=== PATIENT | male | born 1940 | race Caucasian/White ===

== ENCOUNTER → 2017-07-15 | Outpatient (REF) | payer MEDICARE, OTHER ==
[2017-07-15 21:44] LABS: ATYPICAL LYMPH 6 % (0-5); BANDS 3 % (< 11); LYMPHOCYTES 2 % (16-52); MONOCYTES 6 % (0-8); MYELOCYTES 1 % (0-0); NEUTROPHILS 82 % (35-75)
[2017-07-15 21:48] LABS: PLATELET ESTIMATE NORMAL (NORMAL)
== END ==
LOC: M LAB REF 17:22
DX: J20.9 Acute bronchitis, unspecified (principal); R05 Cough
CPT/HCPCS: 85007

== ENCOUNTER → 2019-07-20 | Outpatient (REF) | payer MEDICARE, OTHER | LOC: M LAB REF 13:20 | PROVIDERS: ATTEND Nurse Practitioner Adult Health | DX: Z01.818 Encounter for other preprocedural examination (principal); N40.1 Benign prostatic hyperplasia with lower urinary tract symptoms ==

== ENCOUNTER → 2020-03-09 | Outpatient (REF) | payer MEDICARE, OTHER ==
[2020-03-09 17:43] LABS: VITAMIN B12 LEVEL 1005 PG/ML (247-911)
== END ==
LOC: M LAB REF 16:12
PROVIDERS: ATTEND Nurse Practitioner Adult Health
DX: D51.9 Vitamin B12 deficiency anemia, unspecified (principal); Z72.51 High risk heterosexual behavior

== ENCOUNTER → 2020-04-13 | Outpatient (CLI) | payer MEDICARE, OTHER | LOC: M LABSMTC 11:51 | PROVIDERS: ATTEND Family Medicine | DX: Z11.59 Encounter for screening for other viral diseases (principal) | CPT/HCPCS: C9803; U0003 ==

== ENCOUNTER → 2020-04-22 | Outpatient (CLI) | payer MEDICARE, OTHER ==
--- NOTE | 2020-04-24 06:47 | REP ---
INDICATION: ACUTE BRONCHITIS. COMPARISON: November 13, 2016. TECHNIQUE: Three views... FINDINGS: The lungs are well inflated and free of infiltrate. The pleural angles are sharp. The heart size is normal. Pulmonary vasculature is not increased. No significant bony abnormality is seen. Vascular calcification and tortuosity are seen in the thoracic aorta. Minimal linear fibrosis is noted in the right base. IMPRESSION: Minimal linear fibrosis right base. Otherwise negative chest x-ray.. <Electronically signed by Braydon Christian > 04/22/20 [id number]
== END ==
LOC: M WUC 13:27
PROVIDERS: ATTEND Nurse Practitioner Family
DX: J20.9 Acute bronchitis, unspecified (principal); J84.10 Pulmonary fibrosis, unspecified

== ENCOUNTER → 2020-06-01 | Outpatient (CLI) | payer MEDICARE, OTHER ==
--- NOTE | 2020-06-01 13:27 | REPPI ---
INDICATION: PRE OP RIGHT KNEE ARTHROPLASTY. COMPARISON: Comparison chest x-ray April 22, 2020. TECHNIQUE: Two views.. FINDINGS: The lungs are well inflated and free of infiltrate. The pleural angles are sharp. The heart size is normal. Pulmonary vasculature is not increased. No significant bony abnormality is seen. There is mild calcification and tortuosity in the thoracic aorta. There is a granulomatous calcification projecting at the left apex over the medial clavicle unchanged. IMPRESSION: No active disease.. <Electronically signed by Braydon Christian > 06/01/20 [id number]
[2020-06-01 13:38] LABS: HEMATOCRIT 49.2 % (42.0-52.0); HEMOGLOBIN 15.6 g/dl (13.5-17.5); MEAN CORPUSCULAR HEMOGLOBIN 32.1 pg (27.0-33.0); MEAN CORPUSCULAR HGB CONC 31.7 g/dl (32.0-36.5); MEAN CORPUSCULAR VOLUME 101.2 fl (80.0-96.0); PLATELET COUNT, AUTOMATED 281 10^3/uL (150-450); RED BLOOD COUNT 4.86 10^6/uL (4.30-6.10); WHITE BLOOD COUNT 7.4 10^3/uL (4.0-10.0)
[2020-06-01 13:49] LABS: INR 0.95; PROTHROMBIN TIME 12.9 SECONDS (12.5-14.3)
[2020-06-01 14:07] LABS: ALBUMIN 3.8 GM/DL (3.2-5.2); ALT/SGPT 29 U/L (12-78); BILIRUBIN,TOTAL 0.4 MG/DL (0.2-1.0); BLOOD UREA NITROGEN 17 MG/DL (7-18); CARBON DIOXIDE LEVEL 29 MEQ/L (21-32); CHLORIDE LEVEL 105 MEQ/L (98-107); CREATININE FOR GFR 0.89 MG/DL (0.70-1.30); GLOMERULAR FILTRATION RATE > 60.0 (>35); GLUCOSE, FASTING 86 MG/DL (70-100); POTASSIUM SERUM 4.3 MEQ/L (3.5-5.1); SODIUM LEVEL 138 MEQ/L (136-145); TOTAL PROTEIN 6.7 GM/DL (6.4-8.2)
[2020-06-01 14:20] LABS: ERYTHROCYTE SEDIMENTATION RATE 2 mm/hr (0-20)
== END ==
LOC: M PLAIMG 10:20
PROVIDERS: ATTEND Physician Assistant
DX: Z01.818 Encounter for other preprocedural examination (principal); M17.11 Unilateral primary osteoarthritis, right knee; I10 Essential (primary) hypertension; E78.00 Pure hypercholesterolemia, unspecified; K21.9 Gastro-esophageal reflux disease without esophagitis

== ENCOUNTER → 2020-06-09 | Outpatient (CLI) | payer MEDICARE, OTHER ==
[~2020-06-09] MED LIST: AMLO1TAB25 PO; ASPI81TA26 PO; ATOR1TAB21 PO; CVS1CAP2 PO; CYAN500T14 PO; D31000TA2 PO; ECOT81TA5 PO; HYDR12CA PO; LISI-538 PO; MONT5TAB2 PO; MYRB50TA PO; PERC5TAB12 PO; VITA-243 PO; [UNRECOGNIZED DRUG - OTHER] PO
== END ==
LOC: M LABSMTC 10:33
PROVIDERS: ATTEND Anesthesiology
DX: Z11.59 Encounter for screening for other viral diseases (principal)

== ENCOUNTER 2020-06-14 09:01 | Inpatient (IN) | payer MEDICARE, OTHER ==
[~2020-06-14] VITALS: Ht 172.7 cm; Wt 75.0 kg
[~2020-06-14 09:01] MED LIST changes: +ACETAMINOPHEN 500 MG TAB PO ONE; -ECOT81TA5 PO; +LR 1,000 ML IV ONE; +MIDAZOLAM INJ 2MG/2ML VIAL (J2250 PER 1MG) IV PRN; -PERC5TAB12 PO; +ceFAZolin SOD 2 GM in IV 1 EA IV ONE; +fentaNYL 100 MCG/2 ML INJECTION (J3010) IV PRN
--- NOTE | 2020-06-14 09:10 | HPE ---
HISTORY AND PHYSICAL DATE OF ADMISSION: 06/14/2020 ATTENDING: Dr. Thomas Maynard CHIEF COMPLAINT: Right knee pain. HISTORY OF PRESENT ILLNESS: Mr. Francisco is a pleasant 80-year-old male with progressively worsening right knee pain and stiffness. He has failed to improve with conservative treatment. He has elected for surgery for his continued symptoms. He has pain with weightbearing activities and his activities of daily living. X-rays of his knee are notable for advanced osteoarthritis of the right knee joint. He is consented for a right total knee arthroplasty by Dr. Thomas Maynard. Medical optimization was performed by Dr. Granger's office. ALLERGIES: No known allergies. CURRENT MEDICATIONS: 1. Lisinopril 20 mg daily. 2. B-12 3000 mcg day. 3. Myrbetriq 50 mg once a day. 4. Atorvastatin 20 mg. 5. Montelukast 10 mg. 6. Nori baby aspirin. 7. Famotidine 20 mg at bedtime. PAST MEDICAL HISTORY: 1. Hypertension. 2. High cholesterol. 3. Acid reflux. PAST SURGICAL HISTORY: Hernia repair. SOCIAL HISTORY: This gentleman is retired, does not smoke, and drinks daily. FAMILY HISTORY: Noncontributory. REVIEW OF SYSTEMS: This patient denies chest pain, heart palpitations, cough, wheezing, difficulty breathing, or shortness of breath. He denies abdominal pain, nausea, vomiting, diarrhea, or constipation. He denies recent upper respiratory infection or urinary tract infection symptoms. He does complain of persistent pain in the right knee. PHYSICAL EXAMINATION: GENERAL: He is a well-nourished, well-developed, in no acute distress, alert male. He ambulates with a moderate limp favoring his right lower extremity. He is using a single leg cane. VITAL SIGNS: He is 5 feet 7.5 inches tall and weighs 165 pounds, temperature 96.6, blood pressure 122/84, pulse 78, and respirations 16. NECK: Supple without adenopathy or jugular venous distention. LUNGS: Clear to auscultation without rales or wheezes throughout. HEART: Regular rate and rhythm. ABDOMEN: Bowel sounds are present. EXTREMITIES: Examination of the knee revealed intact skin. He had decreased range of motion due to pain and stiffness. The limb was neurovascularly intact. LABORATORY DATA: Chest x-ray showed no acute cardiopulmonary disease processes. We are waiting on the EKG from Dr. Granger's office. Pro time 12.9, INR 0.95, glucose 86, BUN 17, creatinine 0.89, sodium 138, potassium 4.3. CBC showed MCV of 101.2 and a mean corpuscular hemoglobin concentration of 31.7, otherwise within normal limits with a sedimentation rate of 2. IMPRESSION: Symptomatic osteoarthritis of the right knee joint. PLAN: Consented for a right total knee arthroplasty by Dr. Thomas Maynard.
[2020-06-14] MEDS ORDERED: fentaNYL 100 MCG/2 ML INJECTION (J3010) As Ordered ONE ×2 (10:10→11:04)
[2020-06-14] MEDS ORDERED: propofoL 200 MG/20 ML VIAL As Ordered ONE (10:10)
[2020-06-14] MEDS ORDERED: TRANEXAMIC ACID 100 MG/ML 10ML VIAL As Ordered ONE (10:18)
[2020-06-14] MEDS ORDERED: BUPIVACAINE HCL 0.25% 10ML VIAL As Ordered ONE (10:18)
[2020-06-14] MEDS ORDERED: BUPIVACAINE LIPOSOME/PF 1.3% 20ML VIAL (13.3MG/ML)(EXPAREL)(C9290 PER1MG) As Ordered ONE (10:19)
[2020-06-14] MEDS ORDERED: EPINEPHrine INJ 1 MG/ML 1ML AMP As Ordered ONE ×2 (10:19→11:04)
[2020-06-14] MEDS ORDERED: ceFAZolin 1GM VIAL (J0690 PER 500MG) As Ordered ONE (10:19)
[2020-06-14] MEDS ORDERED: dexameTHASONE 10MG/1ML VIAL PRES.FREE (J1100 PER 1MG) As Ordered ONE (11:02)
[2020-06-14] MEDS ORDERED: LIDOCAINE 1% MDV 20ML VIAL As Ordered ONE (11:02)
[2020-06-14] MEDS ORDERED: ROPIvacaine 0.5% 30ML INJECTION (J2795 PER 1MG) As Ordered ONE ×2 (11:02→11:04)
[2020-06-14] MEDS ORDERED: MIDAZOLAM INJ 2MG/2ML VIAL (J2250 PER 1MG) As Ordered ONE (11:04)
[2020-06-14] MEDS ORDERED: EPINEPHrine INJ 1 MG/ML 1ML AMP XX ONE (11:30)
[2020-06-14] MEDS ORDERED: ROPIvacaine 0.5% 30ML INJECTION (J2795 PER 1MG) XX ONE (11:30)
[2020-06-14] MEDS ORDERED: dexameTHASONE 10MG/1ML VIAL PRES.FREE (J1100 PER 1MG) XX ONE (11:30)
[2020-06-14] MEDS ORDERED: MIDAZOLAM INJ 2MG/2ML VIAL (J2250 PER 1MG) IV PRN (12:00)
[2020-06-14] MEDS ORDERED: ePHEDrine SULFATE 25 MG/5 ML(5MG/ML) SYRINGE As Ordered ONE (12:33)
[2020-06-14] MEDS ORDERED: PHENYLephrine HCL 500 MCG/5 ML (100MCG/ML) SYRINGE (J2370) As Ordered ONE (12:33)
[2020-06-14] MEDS ORDERED: MORPHINE 4 MG/ML 1ML VIAL/SYRINGE (J2270) IV PRN (14:15)
[2020-06-14] MEDS ORDERED: ACETAMINOPHEN TAB 650MG DOSE (2X325MG) PO PRN (14:15)
[2020-06-14] MEDS ORDERED: PERCOCET 5MG/325MG TAB PO PRN (14:15)
[2020-06-14] MEDS ORDERED: LR 1,000 ML IV SCH ×2 (14:15)
[2020-06-14] MEDS ORDERED: METOCLOPRAMIDE INJ 10MG/2ML VIAL (J2765 PER 1) IV PRN (14:15)
[2020-06-14] MEDS ORDERED: fentaNYL 100 MCG/2 ML INJECTION (J3010) IV PRN (14:15)
[2020-06-14] MEDS ORDERED: ONDANSETRON 4MG/2ML VIAL IV PRN ×2 (14:15)
[2020-06-14] MEDS ORDERED: MORPHINE 2 MG/ML 1ML VIAL (J2270) IV PRN (14:15)
[2020-06-14] MEDS ORDERED: oxyCODONE 5MG TAB PO PRN (14:15)
--- NOTE | 2020-06-14 14:20 | REP ---
INDICATION: S/P Total COMPARISON: None. TECHNIQUE: AP and cross-table lateral views. FINDINGS: Normal appearance and positioning to the femoral and tibial components. Overlying postsurgical changes and skin brianne noted. IMPRESSION: Status post right knee replacement. Satisfactory positioning. <Electronically signed by Krzysztof Booker > 06/14/20 [id number]
--- NOTE | 2020-06-14 17:47 | HPEPDOC ---
[facility] Medical History & Physical Date of Admission Jun 14, 2020 Date of Service: Jun 14, 2020 Attending Physician: DAPHNEY ESCALONA MD History and Physical CHIEF COMPLAINT: s/p elective R knee arthroplasty HISTORY OF PRESENT ILLNESS: 80 yo M with a history of HTN, HLD, GERD, asthma and osteoarthritis who is being admitted by orthopedics s/p elective R knee arthroplasty for persistent R knee osteoarthritis despite conservative treatment. His pre-op evaluation was completed in the outpatient setting during which CBC and BMP were wnl. His post- op course is thus far going well, with mild dull pain in the R knee at this time but conversant when I arrived at bedside and breathing comfortably on room air. PAST MEDICAL HISTORY: 1. Hypertension. 2. High cholesterol. 3. Acid reflux. 4. Asthma 5. Overactive bladder PAST SURGICAL HISTORY: Hernia repair. SOCIAL HISTORY: Retired, does not smoke, and drinks daily. Denies history of withdrawal or excessive use. FAMILY HISTORY: Non contributory REVIEW OF SYSTEMS: Denies recent history of chest pain, heart palpitations, cough, wheezing, difficulty breathing, or shortness of breath, abdominal pain, nausea, vomiting, diarrhea, or constipation. He denies recent history of fever, chills, upper respiratory symptoms or sick contacts. The remainder of the 10 point of ROS was also grossly negative. PHYSICAL EXAMINATION: VITALS: see below GENERAL: Well developed, well-nourished, in no acute distress, alert and oriented x 3, pleasant and cooperative. NECK: Supple without adenopathy, thyromegaly or jugular venous distention. LUNGS: Clear to auscultation without rales or wheezes throughout. HEART: Regular rate and rhythm without m/r/g ABDOMEN: Bowel sounds are present and normoactive, soft, NTND EXTREMITIES: Examination of the R knee revealed dressing intact. No pedal edema. LLE exam was wnl without edema, full FROM and WWP He had decreased NEURO: CN3-12 intact, RLE deferred due to pain postop, otherwise moving LLE and bilateral UE spontaneously. Speech is clear without dysarthria PSYCH: AOx3 LABORATORY DATA: Reviewed. Last labs on 06.01 with WBC 7.4, hgb 15.6, platelets 281, MCV 101.2, na 138, K 4.3, Cr 0.89 IMAGING: R knee XR: Normal appearance and positioning to the femoral and tibial components. Overlying postsurgical changes and skin brianne noted. Satisfactory positioning. MICROBIOLOGY: Please see below. ASSESSMENT: 80 yo M with a history of HTN, HLD, GERD, asthma and osteoarthritis who is being admitted by orthopedics s/p elective R knee arthroplasty . PLAN: R knee osteoarthritis s/p arthroplasty: -Pain management per ortho primary team -DVT ppx per primary team -PT guidelines per ortho -PT/OT -check AM CBC and BMP HTN: -restore HCTZ and lisinopril tomorrow AM Overactive bladder: -continue home mirabegron Asthma: -continue home montelukast Macrocytic anemia: -continue home Vit b12 -continue vit C Vit D deficiency: -continue home Vit D3 HLD: -continue home statin DVT ppx: per ortho Vital Signs Vital Signs Date Time Temp Pulse Resp B/P (MAP) Pulse Ox O2 Delivery O2 Flow Rate FiO2 06/14/20 17:00 80 18 186/102 (130) 97 Room Air 06/14/20 14:20 97.0 06/14/20 12:00 2 Home Medications Scheduled Ascorbic Acid (Vitamin C) 500 Mg Tablet, 500 MG PO DAILY Aspirin (Aspirin EC) 81 Mg Tablet.dr, 81 MG PO DAILY Atorvastatin Calcium (Atorvastatin Calcium) 20 Mg Tablet, 20 MG PO DAILY Cholecalciferol (Vitamin D3) (Vitamin D3) 1,000 Unit Tablet, 2,000 UNITS PO DAILY Cyanocobalamin (Vitamin B-12) (Vitamin B-12) 500 Mcg Tablet, 500 MCG PO DAILY Hydrochlorothiazide (Hydrochlorothiazide) 12.5 Mg Capsule, 12.5 MG PO DAILY Lactobacillus Combo No.10 (Probiotic) 1 Each Capsule, 1 CAP PO DAILY Lisinopril (Lisinopril) 20 Mg Tablet, 20 MG PO DAILY Mirabegron (Myrbetriq) 50 Mg Tab.er.24h, 50 MG PO DAILY Montelukast Sodium (Montelukast Sodium) 10 Mg Tablet, 10 MG PO QPM [calciummagzinc] , 1 TAB PO DAILY Allergies Coded Allergies: No Known Allergies (Unverified , 06/07/20) A-FIB/CHADSVASC A-FIB History Current/History of A-Fib/PAF?: No Current PO Anticoag Therapy: No Age/Risk Factor Scoring CHADSVASC: CHADSVASC Response (Comments) Value Age Risk Factor Age >/= 75 years old 2 Gender Risk Factor Male 0 Hx of CHF No 0 Hx of HTN Yes 1 Hx of Stroke/TIA/or VTE No 0 Hx of Diabetes No 0 Hx of Vascular Disease No 0 Total 3 Treatment Treatment ordered: NONE Reason Anticoagulant not given: Not indicated/Urren3qdrs DAPHNEY ESCALONA MD Jun 14, 2020 17:32
--- NOTE | 2020-06-14 18:45 | RO ---
OPERATIVE NOTE DATE OF OPERATION: 06/14/2020 PREOPERATIVE DIAGNOSIS: Right knee degenerative arthritis. POSTOPERATIVE DIAGNOSIS: Right knee degenerative arthritis. PROCEDURE: Right total knee arthroplasty using a size 6 cruciate retaining femoral component and a size 6 tibial tray, a 6 mm rotating platform polyethylene insert and a 38 mm polyethylene button. All components were cemented. Prosthesis was made by [employer]. It was an [employer] knee. SURGEON: Thomas Maynard M.D. ADVANCED QUALITY ENGINEER: Ceci Orr ANESTHESIA: Spinal right femoral nerve. COMPLICATIONS: None. SPECIMEN: Joint surface. ESTIMATED BLOOD LOSS: 20 ml PROCEDURE PERFORMED: Antibiotics were given intravenously preoperatively, a right femoral nerve block and then a spinal anesthetic induced. Tourniquet placed on right upper thigh and not inflated. Right lower extremity was carefully prepped and draped in the usual fashion and the leg was elevated; and after appropriate time-out, the tourniquet was inflated and a longitudinal incision was made for medial parapatellar posterior to the knee. The Bovie cautery was used to coagulate crossing vessels. A medial parapatellar arthrotomy performed and subperiosteal dissection of the proximal medial and lateral tibial plateau was performed. The patella was then everted the knee flexed. The ACL dbrided. There are extensive full-thickness chondral defects throughout the entire medial tibial and medial femoral condyles. Drill was placed down the center of the femoral canal followed by an intramedullary raymond. The distal femoral cutting jig set at 5 degree valgus cut at 9 mm resection level for a right knee. The jig was pinned into position. A distal femoral cut performed. AP sizing jig measured for a size 6. 3 degree of external rotation dialed in, a pin was placed, 4 in 1 block applied, anterior/posterior chamfer cuts performed. Then a sulcus osteotomy was preformed using the jig. We then exposed the proximal tibia, used the extramedullary jig for the tibia to estimate being parallel to the mechanical axis of the tibia. We referenced off the medial tibial condyle at 4 mm. Block was pinned in position. Secondary check with the extramedullary raymond confirmed we appeared to be parallel to mechanical axis. Thus we performed a proximal tibial osteotomy. Lamina is project manager was then placed medially and we performed a completion medial meniscectomy, debridement of posterior medial osteophytes and then placed the lamina is project manager laterally and performed completion of the medial meniscectomy and debridement of the posterior medial osteophytes. A trial with a spacer block and 6 mm had good symmetry and stability both in flexion and in extension. We then exposed the proximal tibial size for a 6 tray, pinned into position, following with a reamer and broach. A trial 6 mm was placed followed with trial femoral component. Brought the knee in extension, everted the patella, performed a patella osteotomy, sized for a 38 button. The lug holes were drilled, the trial was placed and the patellofemoral track was anatomic. Thus I drilled the lug holes for the femur and then removed all the trial components and placed Exparel on the subperiosteal tissues around the distal femur and the proximal tibia as my assistant executive housekeeper, Ms Ceci Orr, mix the cement on the back table. She was also critical to the success of this difficult surgery by helping with appropriate and soft tissue retraction, help to manipulate the knee as needed, help to close the wound, help prepare the patient for surgery amongst many other tasks to allow me to perform the operation smoothly, efficiently and safely. I then cemented the tibial tray, moving excess cement after I copiously pulse lavage, irrigated the joint surfaces and made sure that is thoroughly dry. I then cemented the femoral component and removed excess cement an placed the polyethylene, brought the knee to extension and cemented the patellar button, removed excess cement, held with the clamp with the knee in full extension until the cement hardened; and as we were waiting this, we copiously pulsatile lavage, irrigated out the knee joint as I did several times throughout the operation and then placed tranexamic acid in the joint and then closed the apex of the arthrotomy with two #1 PDS sutures, the medial parapatellar area was closed with #1 PDS suture and then we closed the capsule with a running double arm STRATAFIX. Then the tourniquet was released and then we irrigated between layers, closed the deep subdermal tissues with interrupted 2-0 PDS sutures. The skin was closed with brianne, covered by an Optifoam, dry sterile bulky dressing. He was then transferred to the recovery room in stable condition. There were no intraoperative complications.
[2020-06-14 20:20] VITALS: BP 186/105
[2020-06-14] MEDS: ceFAZolin SOD 2 GM in IV 1 EA IV SCH (23:09)
[2020-06-14] MEDS: PERCOCET 5MG/325MG TAB PO PRN (23:10)
[2020-06-14] MEDS: ASPIRIN 81 MG ENTERIC TAB PO SCH (23:11)
[2020-06-15 02:00] VITALS: BP 115/87
[2020-06-15] MEDS: ceFAZolin SOD 2 GM in IV 1 EA IV SCH ×2 (04:29→13:15)
[2020-06-15 06:00] VITALS: BP 150/83
[2020-06-15] MEDS ORDERED: PERC5TAB12 PO (06:08)
[2020-06-15] MEDS ORDERED: ECOT81TA5 PO ×2 (06:08→06:22)
[2020-06-15 07:06] LABS: HEMOGLOBIN 15.2 g/dl (13.5-17.5); MEAN CORPUSCULAR HEMOGLOBIN 32.9 pg (27.0-33.0); MEAN CORPUSCULAR HGB CONC 33.8 g/dl (32.0-36.5); MEAN CORPUSCULAR VOLUME 97.4 fl (80.0-96.0); PLATELET COUNT, AUTOMATED 268 10^3/uL (150-450); RED BLOOD COUNT 4.62 10^6/uL (4.30-6.10); WHITE BLOOD COUNT 17.9 10^3/uL (4.0-10.0)
[2020-06-15 07:33] LABS: ALBUMIN 3.3 GM/DL (3.2-5.2); ALT/SGPT 26 U/L (12-78); BILIRUBIN,TOTAL 0.4 MG/DL (0.2-1.0); BLOOD UREA NITROGEN 14 MG/DL (7-18); CALCIUM LEVEL 8.5 MG/DL (8.8-10.2); CARBON DIOXIDE LEVEL 25 MEQ/L (21-32); CHLORIDE LEVEL 108 MEQ/L (98-107); CREATININE FOR GFR 0.92 MG/DL (0.70-1.30); GLOMERULAR FILTRATION RATE > 60.0 (>35); GLUCOSE, FASTING 105 MG/DL (70-100); PHOSPHORUS LEVEL 3.7 MG/DL (2.5-4.9); POTASSIUM SERUM 4.2 MEQ/L (3.5-5.1); SODIUM LEVEL 142 MEQ/L (136-145)
[2020-06-15] MEDS ORDERED: MIRALAX *UNIT DOSE* 17GM PACKET PO SCH (09:00)
[2020-06-15] MEDS: ASPIRIN 81 MG ENTERIC TAB PO SCH (09:16)
[2020-06-15] MEDS: PERCOCET 5MG/325MG TAB PO PRN (09:20)
[2020-06-15] MEDS ORDERED: VITAMIN D 1,000 INTERNATIONAL UNITS TABLET PO SCH (09:30)
[2020-06-15] MEDS ORDERED: ATORVASTATIN 20 MG TAB PO SCH (09:30)
[2020-06-15] MEDS ORDERED: hydroCHLOROthiazide 12.5 MG CAPSULE PO SCH (09:30)
[2020-06-15] MEDS ORDERED: lisinopriL 20 MG TAB PO SCH (09:30)
[2020-06-15] MEDS ORDERED: CYANOCOBALAMIN 500 MCG TAB PO SCH (09:30)
[2020-06-15 11:04] VITALS: BP 127/70
--- NOTE | 2020-06-15 12:05 | IPNPDOC ---
Text Note Date of Service The patient was seen on 06/15/20. NOTE SUBJECTIVE: -No acute complaints, pain well controlled PHYSICAL EXAMINATION: VITALS: see below GENERAL: Well developed, well-nourished, in no acute distress, alert and orient ed x 3, pleasant and cooperative. NECK: Supple without adenopathy, thyromegaly or jugular venous distention. LUNGS: Clear to auscultation without rales or wheezes throughout. HEART: Regular rate and rhythm without m/r/g ABDOMEN: Bowel sounds are present and normoactive, soft, NTND EXTREMITIES: Examination of the R knee revealed dressing intact. No pedal edema. LLE exam was wnl without edema, full FROM and WWP He had decreased NEURO: CN3-12 intact, RLE with full range of motion wit strength limited by postop pain, otherwise moving LLE and bilateral UE spontaneously. Speech is clear without dysarthria PSYCH: AOx3 LABORATORY DATA: Reviewed. WBC 17.9 hgb 15.2 platelets 268 Na 142 Cr 0.92 IMAGING: R knee XR: Normal appearance and positioning to the femoral and tibial components. Overlyi ng postsurgical changes and skin brianne noted. Satisfactory positioning. MICROBIOLOGY: Please see below. ASSESSMENT: 80 yo M with a history of HTN, HLD, GERD, asthma and osteoarthritis who is being admitted by orthopedics s/p elective R knee arthroplasty, doing well. . PLAN: R knee osteoarthritis s/p arthroplasty: -Pain management per ortho primary team -DVT ppx per primary team -PT guidelines per ortho -PT/OT -check AM CBC and BMP Leukocytosis: -reactive postop, no signs or evidence of infection, will monitor CBC while inpatient HTN: -resume HCTZ and lisinopril Overactive bladder: -continue home mirabegron Asthma: -continue home montelukast Macrocytic anemia: -continue home Vit b12 -continue vit C Vit D deficiency: -continue home Vit D3 HLD: -continue home statin DVT ppx: per ortho VS,Fishbone, I+O VS, Fishbone, I+O Laboratory Tests 06/15/20 06:40 Vital Signs Date Time Temp Pulse Resp B/P (MAP) Pulse Ox O2 Delivery O2 Flow Rate FiO2 06/15/20 09:20 18 06/15/20 06:00 97.6 82 150/83 (105) 95 Room Air 06/14/20 12:00 2 I&O- Last 24 Hours up to 6 AM 06/15/20 06:00 Intake Total 2290 ml Output Total 120 ml Balance 2170 ml DAPHNEY ESCALONA MD Jun 15, 2020 09:25
[2020-06-15] MEDS ORDERED: MONTELUKAST 10 MG TAB PO SCH (21:00)
== END 2020-06-15 13:50 | disposition home or self-care (01) | DRG 470 ==
LOC: M OR 09:01 → M MS5PR 21:20
PROVIDERS: ADMIT Orthopaedic Surgery; ATTEND Orthopaedic Surgery
PROC: 0SRC0J9 Replacement of Right Knee Joint with Synthetic Substitute, Cemented, Open Approach (ICD-10-PCS; principal; 2020-06-14 12:30)
DX: M17.11 Unilateral primary osteoarthritis, right knee (principal); Z79.899 Other long term (current) drug therapy; Z79.82 Long term (current) use of aspirin; I10 Essential (primary) hypertension; E78.00 Pure hypercholesterolemia, unspecified; K21.9 Gastro-esophageal reflux disease without esophagitis; E55.9 Vitamin D deficiency, unspecified; D53.9 Nutritional anemia, unspecified; J45.909 Unspecified asthma, uncomplicated

== ENCOUNTER → 2020-12-03 | Outpatient (CLI) | payer MEDICARE, OTHER ==
[~2020-12-03] MED LIST changes: -ACETAMINOPHEN 500 MG TAB PO ONE; +ECOT81TA5 PO; -LISI-538 PO; +LISI20TA33 PO; -LR 1,000 ML IV ONE; -MIDAZOLAM INJ 2MG/2ML VIAL (J2250 PER 1MG) IV PRN; +MONT10TA10 PO; -MONT5TAB2 PO; +PERC5TAB12 PO; -ceFAZolin SOD 2 GM in IV 1 EA IV ONE; -fentaNYL 100 MCG/2 ML INJECTION (J3010) IV PRN
--- NOTE | 2020-12-03 15:38 | REP ---
INDICATION: PAIN IN RIGHT SHOULDER. Rule out pectoralis muscle tear. COMPARISON: None. TECHNIQUE: Axial, coronal and sagittal imaging planes are utilized for MRI study of the right chest wall and shoulder region, large [id number] imaging. Images are acquired with without fat saturation. FINDINGS: There is an area of curvilinear low T1, low T2 signal intensity fibrosis along the insertion of the right pectoralis muscle consistent with an old pectoralis muscle tear there is some generalized volume loss in the right pectoralis muscle compared to the left. This appears to be involving the pectoralis major muscle. Minor muscle is normal and symmetric. There is advanced osteoarthritis of the right shoulder visualized at the edge of the imaging field of view with osteophyte formation and joint space narrowing and subcortical cyst formation. Similar changes are noted in the left glenohumeral articulation. No abnormal mass or fluid collection is seen. No other abnormality. 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 Atrophy is seen in the pectoralis major muscle on the right. There is advanced osteoarthritis of the right shoulder and left shoulder at the edges of the imaging field of view. <Electronically signed by Braydon Christian > 12/03/20 [id number]
== END ==
LOC: M RAD 12:31
PROVIDERS: ATTEND Physician Assistant
DX: M25.511 Pain in right shoulder (principal); M19.011 Primary osteoarthritis, right shoulder; M19.012 Primary osteoarthritis, left shoulder

== ENCOUNTER → 2022-03-05 | Outpatient (REF) | payer MEDICARE, OTHER ==
[~2022-03-05] MED LIST changes: -D31000TA2 PO; -MONT10TA10 PO; +MONT10TA97 PO; +VITA100093 PO
[2022-03-05 17:30] LABS: C REACTIVE PROTEIN QUANTITATIV < 0.30 MG/DL (0.00-0.30); RHEUMATOID FACTOR QUANT < 10.0 IU/ML (<15.0)
== END ==
LOC: M LAB REF 16:16
PROVIDERS: ATTEND Internal Medicine
DX: S29.011D Strain of muscle and tendon of front wall of thorax, subsequent encounter (principal)

== ENCOUNTER → 2022-03-13 | Outpatient (REF) | payer MEDICARE, OTHER | LOC: M LAB REF 16:35 | PROVIDERS: ATTEND Nurse Practitioner Adult Health | DX: R32 Unspecified urinary incontinence (principal) ==

== ENCOUNTER → 2022-06-06 | Outpatient (CLI) | payer MEDICARE, OTHER | LOC: M RAD 15:56 | PROVIDERS: ATTEND Physician Assistant | DX: M51.36 Other intervertebral disc degeneration, lumbar region (principal); M51.26 Other intervertebral disc displacement, lumbar region; M48.061 Spinal stenosis, lumbar region without neurogenic claudication; M99.63 Osseous and subluxation stenosis of intervertebral foramina of lumbar region; M43.16 Spondylolisthesis, lumbar region; N28.1 Cyst of kidney, acquired ==

== ENCOUNTER → 2022-08-05 | Outpatient (CLI) | payer MEDICARE, OTHER | LOC: M PAIN 13:00 | PROVIDERS: ATTEND Nurse Practitioner Family | DX: M79.10 Myalgia, unspecified site (principal); G89.29 Other chronic pain; I10 Essential (primary) hypertension; G47.30 Sleep apnea, unspecified; Z87.891 Personal history of nicotine dependence; Z79.82 Long term (current) use of aspirin; Z79.899 Other long term (current) drug therapy ==

== ENCOUNTER → 2022-10-04 | Outpatient (CLI) | payer MEDICARE, OTHER | LOC: M WUC 10:40 | PROVIDERS: ATTEND Nurse Practitioner Family | DX: R05.9 Cough, unspecified (principal); J06.9 Acute upper respiratory infection, unspecified; J84.10 Pulmonary fibrosis, unspecified ==

== ENCOUNTER → 2022-11-04 | Outpatient (CLI) | payer MEDICARE, OTHER ==
[~2022-11-04] MED LIST changes: +BUPIVACAINE HCL 0.25% 10ML VIAL As Ordered ONE; +BUPIVACAINE HCL 0.25% 30ML VIAL As Ordered ONE; +TRIAMCINOLONE ACETONIDE SUSP 40MG/ML 1ML VIAL As Ordered ONE
== END ==
LOC: M PAIN 10:00
PROVIDERS: ATTEND Anesthesiology
DX: M79.18 Myalgia, other site (principal); I10 Essential (primary) hypertension; E78.5 Hyperlipidemia, unspecified; M54.50 Low back pain, unspecified; M54.2 Cervicalgia; K21.9 Gastro-esophageal reflux disease without esophagitis; G47.30 Sleep apnea, unspecified; Z87.891 Personal history of nicotine dependence; Z79.899 Other long term (current) drug therapy; Z79.82 Long term (current) use of aspirin
CPT/HCPCS: 20553; J3301

== ENCOUNTER → 2022-12-06 | Outpatient (CLI) | payer MEDICARE, OTHER ==
[~2022-12-06] MED LIST changes: -BUPIVACAINE HCL 0.25% 10ML VIAL As Ordered ONE; -BUPIVACAINE HCL 0.25% 30ML VIAL As Ordered ONE; -TRIAMCINOLONE ACETONIDE SUSP 40MG/ML 1ML VIAL As Ordered ONE
== END ==
LOC: M PAIN 13:45
PROVIDERS: ATTEND Nurse Practitioner Family
DX: M50.10 Cervical disc disorder with radiculopathy, unspecified cervical region (principal); M79.10 Myalgia, unspecified site; I10 Essential (primary) hypertension; E78.5 Hyperlipidemia, unspecified; M54.50 Low back pain, unspecified; K21.9 Gastro-esophageal reflux disease without esophagitis; G47.30 Sleep apnea, unspecified; Z87.891 Personal history of nicotine dependence; Z79.82 Long term (current) use of aspirin; Z79.899 Other long term (current) drug therapy

== ENCOUNTER → 2022-12-12 | Outpatient (CLI) | payer MEDICARE, OTHER | LOC: M PAIN 11:15 | PROVIDERS: ATTEND Nurse Practitioner Family | DX: M79.10 Myalgia, unspecified site (principal); G89.29 Other chronic pain; I10 Essential (primary) hypertension; G47.30 Sleep apnea, unspecified; Z87.891 Personal history of nicotine dependence; Z79.82 Long term (current) use of aspirin; Z79.899 Other long term (current) drug therapy ==

== ENCOUNTER → 2023-01-16 | Outpatient (CLI) | payer MEDICARE, OTHER ==
[~2023-01-16] MED LIST changes: +NORCO, ANEXSIA 5/325MG TABLET (HYDROcodone/ACETAMINOPHEN) As Ordered ONE; +TRIAMCINOLONE ACETONIDE SUSP 40MG/ML 1ML VIAL As Ordered ONE; +diazePAM 2 MG TAB As Ordered ONE
== END ==
LOC: M PAIN 14:45
PROVIDERS: ATTEND Anesthesiology
DX: M79.18 Myalgia, other site (principal); G89.29 Other chronic pain; I10 Essential (primary) hypertension; E78.5 Hyperlipidemia, unspecified; M54.50 Low back pain, unspecified; M54.2 Cervicalgia; K21.9 Gastro-esophageal reflux disease without esophagitis; G47.30 Sleep apnea, unspecified; Z87.891 Personal history of nicotine dependence; Z79.899 Other long term (current) drug therapy
CPT/HCPCS: 20552; J0665; J3301

== ENCOUNTER → 2023-02-26 | Outpatient (CLI) | payer MEDICARE, OTHER ==
[~2023-02-26] MED LIST changes: -NORCO, ANEXSIA 5/325MG TABLET (HYDROcodone/ACETAMINOPHEN) As Ordered ONE; -TRIAMCINOLONE ACETONIDE SUSP 40MG/ML 1ML VIAL As Ordered ONE; -diazePAM 2 MG TAB As Ordered ONE
== END ==
LOC: M PAIN 09:00
PROVIDERS: ATTEND Anesthesiology
DX: M54.50 Low back pain, unspecified (principal); M79.10 Myalgia, unspecified site; M54.2 Cervicalgia; G89.29 Other chronic pain; G47.30 Sleep apnea, unspecified; I10 Essential (primary) hypertension; Z87.891 Personal history of nicotine dependence; Z79.82 Long term (current) use of aspirin; Z79.899 Other long term (current) drug therapy

== ENCOUNTER → 2023-05-19 | Outpatient (REF) | payer MEDICARE, OTHER | LOC: M LAB REF 14:04 | PROVIDERS: ATTEND Internal Medicine | DX: R19.7 Diarrhea, unspecified (principal) ==

== ENCOUNTER → 2023-06-07 | Outpatient (REF) | payer MEDICARE, OTHER | LOC: M LAB REF 09:00 | PROVIDERS: ATTEND Internal Medicine | DX: R19.7 Diarrhea, unspecified (principal) ==

== ENCOUNTER → 2023-07-04 | Outpatient (CLI) | payer MEDICARE, OTHER | LOC: M PAIN 15:15 | PROVIDERS: ATTEND Nurse Practitioner Family | DX: M47.816 Spondylosis without myelopathy or radiculopathy, lumbar region (principal); M54.50 Low back pain, unspecified; G89.29 Other chronic pain; I10 Essential (primary) hypertension; E78.5 Hyperlipidemia, unspecified; M54.2 Cervicalgia; K21.9 Gastro-esophageal reflux disease without esophagitis; G47.30 Sleep apnea, unspecified; Z87.891 Personal history of nicotine dependence; Z79.891 Long term (current) use of opiate analgesic; Z79.899 Other long term (current) drug therapy ==

== ENCOUNTER → 2023-08-13 | Outpatient (REF) | payer MEDICARE, OTHER | LOC: M LAB REF 16:32 | PROVIDERS: ATTEND Internal Medicine | DX: K90.9 Intestinal malabsorption, unspecified (principal) ==

== ENCOUNTER → 2023-08-15 | Outpatient (CLI) | payer MEDICARE, OTHER ==
[~2023-08-15] MED LIST changes: +ISOVUE-M 300 61% 15ML VIAL As Ordered ONE; +LIDOCAINE 1% SDV 30ML VIAL As Ordered ONE
== END ==
LOC: M PAIN 14:30
PROVIDERS: ATTEND Anesthesiology
DX: M47.816 Spondylosis without myelopathy or radiculopathy, lumbar region (principal); I10 Essential (primary) hypertension; G89.29 Other chronic pain; M54.50 Low back pain, unspecified; M54.2 Cervicalgia; K21.9 Gastro-esophageal reflux disease without esophagitis; G47.30 Sleep apnea, unspecified; Z87.891 Personal history of nicotine dependence; Z79.82 Long term (current) use of aspirin; Z79.891 Long term (current) use of opiate analgesic; Z79.899 Other long term (current) drug therapy
CPT/HCPCS: 64493; 64494; J0665; Q9967

== ENCOUNTER → 2023-09-04 | Outpatient (CLI) | payer MEDICARE, OTHER ==
[~2023-09-04] MED LIST changes: -ISOVUE-M 300 61% 15ML VIAL As Ordered ONE; -LIDOCAINE 1% SDV 30ML VIAL As Ordered ONE
== END ==
LOC: M PAIN 10:45
PROVIDERS: ATTEND Nurse Practitioner Family
DX: M47.816 Spondylosis without myelopathy or radiculopathy, lumbar region (principal); M47.817 Spondylosis without myelopathy or radiculopathy, lumbosacral region; G89.29 Other chronic pain; I10 Essential (primary) hypertension; E78.5 Hyperlipidemia, unspecified; M54.50 Low back pain, unspecified; M54.2 Cervicalgia; K21.9 Gastro-esophageal reflux disease without esophagitis; G47.30 Sleep apnea, unspecified; Z87.891 Personal history of nicotine dependence; Z79.891 Long term (current) use of opiate analgesic; Z79.899 Other long term (current) drug therapy

== ENCOUNTER → 2023-09-05 | Outpatient (CLI) | payer MEDICARE, OTHER ==
[~2023-09-05] MED LIST changes: +GASTROGRAFIN SOLUTION 30ML As Ordered ONE; +ISOVUE-370 76% 100ML VIAL As Ordered ONE
== END ==
LOC: M RAD 09:09
PROVIDERS: ATTEND Internal Medicine
DX: K86.81 Exocrine pancreatic insufficiency (principal); K76.0 Fatty (change of) liver, not elsewhere classified; N28.1 Cyst of kidney, acquired; K76.89 Other specified diseases of liver
CPT/HCPCS: 74170; Q9963; Q9967

== ENCOUNTER → 2023-09-11 | Outpatient (CLI) | payer MEDICARE, OTHER ==
[~2023-09-11] MED LIST changes: -GASTROGRAFIN SOLUTION 30ML As Ordered ONE; -ISOVUE-370 76% 100ML VIAL As Ordered ONE
== END ==
LOC: M PAIN 17:00
PROVIDERS: ATTEND Nurse Practitioner Family
DX: M47.812 Spondylosis without myelopathy or radiculopathy, cervical region (principal); G89.29 Other chronic pain; I10 Essential (primary) hypertension; Z79.02 Long term (current) use of antithrombotics/antiplatelets; Z79.1 Long term (current) use of non-steroidal anti-inflammatories (NSAID); Z79.82 Long term (current) use of aspirin; Z79.891 Long term (current) use of opiate analgesic; Z79.899 Other long term (current) drug therapy

== ENCOUNTER → 2023-10-23 | Outpatient (REF) | payer MEDICARE, OTHER ==
[2023-10-24 12:42] LABS: PERCENT SATURATION 34.9 % (19.7-50.0)
[2023-10-24 12:45] LABS: FERRITIN 398.6 NG/ML (10.5-307.3)
== END ==
LOC: M LAB REF 11:42
PROVIDERS: ATTEND Internal Medicine
DX: K92.1 Melena (principal)

== ENCOUNTER → 2023-11-12 | Outpatient (CLI) | payer MEDICARE, OTHER | LOC: M PAIN 13:45 | PROVIDERS: ATTEND Anesthesiology | DX: M47.816 Spondylosis without myelopathy or radiculopathy, lumbar region (principal); G89.29 Other chronic pain; M54.50 Low back pain, unspecified; I10 Essential (primary) hypertension; E78.5 Hyperlipidemia, unspecified; M54.2 Cervicalgia; K21.9 Gastro-esophageal reflux disease without esophagitis; G47.30 Sleep apnea, unspecified; Z87.891 Personal history of nicotine dependence; Z79.891 Long term (current) use of opiate analgesic; Z79.899 Other long term (current) drug therapy | CPT/HCPCS: 76000; G0463 ==

== ENCOUNTER → 2023-11-13 | Outpatient (CLI) | payer MEDICARE, OTHER ==
[~2023-11-13] MED LIST changes: +ISOVUE-M 300 61% 15ML VIAL As Ordered ONE; +LIDOCAINE 1% SDV 30ML VIAL As Ordered ONE
== END ==
LOC: M PAIN 08:15
PROVIDERS: ATTEND Anesthesiology
DX: M47.816 Spondylosis without myelopathy or radiculopathy, lumbar region (principal); G89.29 Other chronic pain; I10 Essential (primary) hypertension; E78.5 Hyperlipidemia, unspecified; M54.2 Cervicalgia; K21.9 Gastro-esophageal reflux disease without esophagitis; G47.30 Sleep apnea, unspecified; Z87.891 Personal history of nicotine dependence; Z79.891 Long term (current) use of opiate analgesic; Z79.899 Other long term (current) drug therapy
CPT/HCPCS: 64493; 64494; J0665; Q9967

== ENCOUNTER → 2023-12-15 | Outpatient (CLI) | payer MEDICARE, OTHER ==
[~2023-12-15] MED LIST changes: -ISOVUE-M 300 61% 15ML VIAL As Ordered ONE; -LIDOCAINE 1% SDV 30ML VIAL As Ordered ONE
== END ==
LOC: M PAIN 14:15
PROVIDERS: ATTEND Nurse Practitioner Family
DX: M47.816 Spondylosis without myelopathy or radiculopathy, lumbar region (principal); M47.817 Spondylosis without myelopathy or radiculopathy, lumbosacral region; G44.86 Cervicogenic headache; E78.5 Hyperlipidemia, unspecified; I10 Essential (primary) hypertension; G47.30 Sleep apnea, unspecified; Z99.89 Dependence on other enabling machines and devices; Z87.891 Personal history of nicotine dependence; Z79.02 Long term (current) use of antithrombotics/antiplatelets; Z79.1 Long term (current) use of non-steroidal anti-inflammatories (NSAID); Z79.891 Long term (current) use of opiate analgesic; Z79.899 Other long term (current) drug therapy

== ENCOUNTER → 2023-12-30 | Outpatient (CLI) | payer MEDICARE, OTHER | LOC: M RAD 10:51 | PROVIDERS: ATTEND Student in an Organized Health Care Education/Training Program | DX: N43.3 Hydrocele, unspecified (principal); N50.819 Testicular pain, unspecified ==

== ENCOUNTER → 2024-02-03 | Outpatient (CLI) | payer MEDICARE, OTHER | LOC: M PAIN 17:00 | PROVIDERS: ATTEND Nurse Practitioner Family | DX: M47.816 Spondylosis without myelopathy or radiculopathy, lumbar region (principal); M47.817 Spondylosis without myelopathy or radiculopathy, lumbosacral region; G89.29 Other chronic pain; I10 Essential (primary) hypertension; E78.5 Hyperlipidemia, unspecified; M54.50 Low back pain, unspecified; M54.2 Cervicalgia; K21.9 Gastro-esophageal reflux disease without esophagitis; G47.30 Sleep apnea, unspecified; Z87.891 Personal history of nicotine dependence; Z79.891 Long term (current) use of opiate analgesic; Z79.899 Other long term (current) drug therapy ==

== ENCOUNTER → 2024-07-15 | Outpatient (CLI) | payer MEDICARE, OTHER ==
[~2024-07-15] MED LIST changes: +LIDOCAINE 1% SDV 30ML VIAL As Ordered ONE; +NORCO, ANEXSIA 5/325MG TABLET (HYDROcodone/ACETAMINOPHEN) As Ordered ONE; +dexAMETHasone 10MG/1ML VIAL PRES.FREE As Ordered ONE; +diazePAM 2 MG TAB As Ordered ONE
== END ==
LOC: M PAIN 14:00
PROVIDERS: ATTEND Anesthesiology
DX: M47.816 Spondylosis without myelopathy or radiculopathy, lumbar region (principal); G89.29 Other chronic pain; I10 Essential (primary) hypertension; E78.5 Hyperlipidemia, unspecified; M54.50 Low back pain, unspecified; K21.9 Gastro-esophageal reflux disease without esophagitis; Z79.891 Long term (current) use of opiate analgesic; Z79.899 Other long term (current) drug therapy
CPT/HCPCS: 64635; 64636; J0665; J1100

== ENCOUNTER → 2024-08-05 | Outpatient (CLI) | payer MEDICARE, OTHER ==
[~2024-08-05] MED LIST changes: -LIDOCAINE 1% SDV 30ML VIAL As Ordered ONE; -NORCO, ANEXSIA 5/325MG TABLET (HYDROcodone/ACETAMINOPHEN) As Ordered ONE; -dexAMETHasone 10MG/1ML VIAL PRES.FREE As Ordered ONE; -diazePAM 2 MG TAB As Ordered ONE
== END ==
LOC: M PAIN 16:30
PROVIDERS: ATTEND Nurse Practitioner Family
DX: M47.816 Spondylosis without myelopathy or radiculopathy, lumbar region (principal); M47.817 Spondylosis without myelopathy or radiculopathy, lumbosacral region; G89.29 Other chronic pain; I10 Essential (primary) hypertension; E78.5 Hyperlipidemia, unspecified; K21.9 Gastro-esophageal reflux disease without esophagitis; Z87.891 Personal history of nicotine dependence; Z79.891 Long term (current) use of opiate analgesic; Z79.899 Other long term (current) drug therapy

== ENCOUNTER → 2024-08-19 | Outpatient (REF) | payer MEDICARE, OTHER | LOC: M LAB REF 16:52 | PROVIDERS: ATTEND Internal Medicine | DX: K90.9 Intestinal malabsorption, unspecified (principal) ==

== ENCOUNTER 2024-08-24 15:45 | Emergency (ER) | payer MEDICARE, OTHER ==
[~2024-08-24] VITALS: Ht 170.2 cm; Wt 79.5 kg
[2024-08-24] MEDS ORDERED: BUSP15TA47 (15:56)
[2024-08-24] MEDS ORDERED: TRAM50TA2 (15:56)
[2024-08-24] MEDS ORDERED: REXU1TAB4 (15:56)
[2024-08-24] MEDS ORDERED: VIBE75TA (15:56)
[2024-08-24 16:34] LABS: BASO # 0.1 10^3/uL (0.0-0.2); BASO % 0.6 % (0.0-1.0); EOS # 0.1 10^3/uL (0.0-0.5); EOS % 1.6 % (0.0-3.0); HEMATOCRIT 47.3 % (42.0-52.0); HEMOGLOBIN 15.7 g/dl (13.5-17.5); LYMPH # 2.3 10^3/uL (1.5-5.0); LYMPH % 28.7 % (24.0-44.0); MEAN CORPUSCULAR HEMOGLOBIN 31.9 pg (27.0-33.0); MEAN CORPUSCULAR HGB CONC 33.2 g/dl (32.0-36.5); MEAN CORPUSCULAR VOLUME 96.1 fl (80.0-96.0); MONO # 0.5 10^3/uL (0.0-0.8); MONO % 6.1 % (2.0-8.0); NEUTROPHILS % 62.4 % (36.0-66.0); PLATELET COUNT, AUTOMATED 223 10^3/uL (150-450); RED BLOOD COUNT 4.92 10^6/uL (4.30-6.10)
[2024-08-24 17:03] LABS: CK-MB VALUE MASS 2.8 NG/ML (<3.6)
[2024-08-24 17:05] LABS: BLOOD UREA NITROGEN 23 MG/DL (9-23); CALCIUM LEVEL 8.7 MG/DL (8.3-10.6); CARBON DIOXIDE LEVEL 24 MMOL/L (20-31); CHLORIDE LEVEL 108 MMOL/L (98-107); CREATININE FOR GFR 0.91 MG/DL (0.70-1.30); GLOMERULAR FILTRATION RATE > 60.0 (>35); GLUCOSE, FASTING 159 MG/DL (74-106); POTASSIUM SERUM 3.7 MMOL/L (3.5-5.1); SODIUM LEVEL 143 MMOL/L (136-145)
[2024-08-24 17:08] LABS: CPK CREATINE PHOSPHOKINASE 85 U/L (46-171); MB/CK RELATIVE INDEX 3.29 (< OR =4)
[2024-08-24 17:54] LABS: CK-MB VALUE MASS 2.8 NG/ML (<3.6); MB/CK RELATIVE INDEX 3.41 (< OR =4)
[2024-08-24] MEDS ORDERED: ISOVUE-370 76% 100ML VIAL As Ordered ONE (18:35)
[2024-08-24 20:45] VITALS: BP 158/79; TEMP 97.1; O2SAT 96
== END 2024-08-24 21:00 | disposition home or self-care (01) ==
LOC: M ED 15:45
DX: R07.89 Other chest pain (principal); I10 Essential (primary) hypertension; E78.5 Hyperlipidemia, unspecified; K21.9 Gastro-esophageal reflux disease without esophagitis; G47.33 Obstructive sleep apnea (adult) (pediatric); F03.90 Unspecified dementia, unspecified severity, without behavioral disturbance, psychotic disturbance, mood disturbance, and anxiety; I71.20 Thoracic aortic aneurysm, without rupture, unspecified; Z79.899 Other long term (current) drug therapy
CPT/HCPCS: 71045; 71275; 80048; 82550; 82553; 84484; 85025; 93005; 93041; 94760; 99285; Q9967

== ENCOUNTER 2024-10-14 09:42 | Emergency (ER) | payer MEDICARE, OTHER ==
[~2024-10-14] VITALS: Ht 170.2 cm; Wt 78.7 kg
[~2024-10-14 09:42] MED LIST changes: +BUSP15TA47 PO; +REXU1TAB4 PO; +TRAM50TA2 PO; +VIBE75TA PO
[2024-10-14] MEDS ORDERED: MEMA10TA PO (09:59)
[2024-10-14] MEDS ORDERED: CREO24CA PO (09:59)
[2024-10-14 10:26] LABS: VENOUS BASE EXCESS -2.3 (-2.0-2.0); VENOUS HCO3 24.1 MMOL/L (23.0-27.0); VENOUS O2 SATURATION 75.9 % (60.0-80.0); VENOUS PARTIAL PRESSURE O2 41.5 mmHg (30.0-50.0); VENOUS PH 7.327 UNITS (7.330-7.430); VENOUS TOTAL CO2 25.5 MMOL/L (24.0-28.0)
[2024-10-14 10:34] LABS: BASO # 0.1 10^3/uL (0.0-0.2); BASO % 0.9 % (0.0-1.0); EOS # 0.1 10^3/uL (0.0-0.5); EOS % 1.6 % (0.0-3.0); HEMOGLOBIN 15.5 g/dl (13.5-17.5); LYMPH # 2.1 10^3/uL (1.5-5.0); LYMPH % 25.7 % (24.0-44.0); MEAN CORPUSCULAR HEMOGLOBIN 31.7 pg (27.0-33.0); MEAN CORPUSCULAR VOLUME 96.1 fl (80.0-96.0); MONO # 0.6 10^3/uL (0.0-0.8); MONO % 7.4 % (2.0-8.0); NEUTROPHILS # 5.2 10^3/uL (1.5-8.5); NEUTROPHILS % 63.3 % (36.0-66.0); PLATELET COUNT, AUTOMATED 229 10^3/uL (150-450); RED BLOOD COUNT 4.89 10^6/uL (4.30-6.10); WHITE BLOOD COUNT 8.2 10^3/uL (4.0-10.0)
[2024-10-14] MEDS ORDERED: ISOVUE-370 76% 100ML VIAL As Ordered ONE (10:40)
[2024-10-14 10:58] LABS: INR 1.01; PARTIAL THROMBOPLASTIN TIME 27.4 SECONDS (24.8-34.2); PROTHROMBIN TIME 13.6 SECONDS (12.5-14.5)
[2024-10-14 11:05] LABS: ALBUMIN 3.7 G/DL (3.2-5.2); ALKALINE PHOSPHATASE 68 U/L (40-129); ALT/SGPT 18 U/L (7.0-40); AST/SGOT < 8 U/L (<34); BILIRUBIN,DIRECT 0.1 MG/DL (<0.4); BILIRUBIN,TOTAL 0.5 MG/DL (0.3-1.2); BLOOD UREA NITROGEN 32 MG/DL (9-23); CARBON DIOXIDE LEVEL 25 MMOL/L (20-31); CHLORIDE LEVEL 105 MMOL/L (98-107); CK-MB VALUE MASS 1.9 NG/ML (<3.6); CPK CREATINE PHOSPHOKINASE 82 U/L (46-171); CREATININE FOR GFR 1.01 MG/DL (0.70-1.30); GLOMERULAR FILTRATION RATE 73.3 (>35); GLUCOSE, FASTING 91 MG/DL (74-106); MB/CK RELATIVE INDEX 2.31 (< OR =4); POTASSIUM SERUM 4.4 MMOL/L (3.5-5.1); SODIUM LEVEL 143 MMOL/L (136-145); TOTAL PROTEIN 6.3 G/DL (5.7-8.2)
[2024-10-14 11:07] LABS: THYROID STIMULATING HORMONE 2.288 uIU/ML (0.55-4.78)
[2024-10-14 11:46] LABS: KETONE, URINE AUTO RFX NEGATIVE (NEGATIVE); LEUKOCYTE ESTERASE UR AUTO RFX NEGATIVE (NEGATIVE); MUCUS, URINE RFX SMALL (NEGATIVE); NITRITE, URINE AUTO RFX NEGATIVE (NEGATIVE); RBC, URINE AUTO RFX 0 /HPF (0-3); SQUAM EPITHELIAL CELL UR AURFX 0 /HPF (0-6); WBC, URINE AUTO RFX 0 /HPF (0-3)
[2024-10-14] MEDS ORDERED: FAMO20TA PO (11:46)
[2024-10-14] MEDS ORDERED: HOME MED LIST COMPLETE! XX SCH (11:50)
[2024-10-14 12:45] VITALS: BP 160/81; TEMP 96
[2024-10-14 12:46] VITALS: O2SAT 98
== END 2024-10-14 13:00 | disposition home or self-care (01) ==
LOC: M ED 09:42
DX: G30.9 Alzheimer's disease, unspecified (principal); I10 Essential (primary) hypertension; E78.5 Hyperlipidemia, unspecified; G47.33 Obstructive sleep apnea (adult) (pediatric); Z79.899 Other long term (current) drug therapy
CPT/HCPCS: 70450; 70496; 70498; 71045; 80047; 80048; 80076; 81001; 82140; 82550; 82553; 82803; 83605; 84443; 84484; 85025; 85610; 85730; 87486; 87581; 87633; 87798; 93005; 93041; 94760; 99285; Q9967

== ENCOUNTER 2024-12-13 11:42 | Inpatient (IN) | payer MEDICARE, OTHER ==
[~2024-12-13] VITALS: Ht 172.7 cm; Wt 75.2 kg
[~2024-12-13 11:42] MED LIST changes: +CREO24CA PO; +FAMO20TA PO; +MEMA10TA PO
[2024-12-13 12:32] LABS: BASO # 0.1 10^3/uL (0.0-0.2); BASO % 0.5 % (0.0-1.0); EOS # 0.1 10^3/uL (0.0-0.5); EOS % 0.6 % (0.0-3.0); LYMPH # 1.8 10^3/uL (1.5-5.0); LYMPH % 16.1 % (24.0-44.0); MONO # 0.7 10^3/uL (0.0-0.8); MONO % 6.4 % (2.0-8.0); NEUTROPHILS # 8.3 10^3/uL (1.5-8.5); NEUTROPHILS % 75.1 % (36.0-66.0); PLATELET COUNT, AUTOMATED 259 10^3/uL (150-450)
[2024-12-13 12:42] VITALS: TEMP 99.6
[2024-12-13 12:58] LABS: ALT/SGPT 24 U/L (7.0-40); AST/SGOT 26 U/L (<34); CALCIUM LEVEL 9.0 MG/DL (8.3-10.6); CARBON DIOXIDE LEVEL 21 MMOL/L (20-31); CHLORIDE LEVEL 107 MMOL/L (98-107); CREATININE FOR GFR 1.01 MG/DL (0.70-1.30); GLOMERULAR FILTRATION RATE 73.3 (>35); POTASSIUM SERUM 4.6 MMOL/L (3.5-5.1); SODIUM LEVEL 142 MMOL/L (136-145)
[2024-12-13] MEDS: NS (Normal Saline) 0.9% 1,000 ML IV ONE (13:03)
[2024-12-13 13:11] LABS: KETONE, URINE AUTO RFX NEGATIVE (NEGATIVE); LEUKOCYTE ESTERASE UR AUTO RFX NEGATIVE (NEGATIVE); MUCUS, URINE RFX LARGE (NEGATIVE); NITRITE, URINE AUTO RFX NEGATIVE (NEGATIVE); RBC, URINE AUTO RFX 8 /HPF (0-3); SQUAM EPITHELIAL CELL UR AURFX 0 /HPF (0-6); WBC, URINE AUTO RFX 2 /HPF (0-3)
[2024-12-13] MEDS ORDERED: MIRT1TAB PO (14:33)
[2024-12-13] MEDS ORDERED: HOME MED LIST COMPLETE! XX SCH (14:35)
[2024-12-13] MEDS ORDERED: BUSP5TA PO (14:51)
[2024-12-13 16:30] VITALS: BP 114/63
[2024-12-13] MEDS ORDERED: HYOSCYAMINE SULFATE 0.125 MG SUBL TABLET PO PRN (17:30)
[2024-12-13] MEDS ORDERED: ONDANSETRON 4MG ORAL DISINTEGRATING TAB PO PRN (17:30)
[2024-12-13] MEDS ORDERED: ATROPINE SULFATE 1% OPHTH SOLN 2 ML BTL SL PRN (17:30)
[2024-12-13] MEDS ORDERED: FAMOTIDINE 20 MG TAB PO PRN (17:35)
[2024-12-13] MEDS: CREON-24 CAPSULE (PANCRELIPASE) PO SCH (18:52)
[2024-12-13] MEDS ORDERED: busPIRone 5 MG TAB PO SCH (21:00)
[2024-12-13] MEDS: LORazepam 1 MG TAB PO PRN (21:04)
[2024-12-13] MEDS: MIRTAZAPINE 7.5 MG PER 1/2 TABLET PO SCH (21:04)
[2024-12-14] MEDS: MORPHINE 10 MG/0.5 ML ORAL CONCENTRATE SOLUTION U/D SL PRN (00:05)
[2024-12-14] MEDS: OLANZapine INTRAMUSCULAR 10MG VIAL IM PRN (04:09)
[2024-12-14] MEDS: traMADol 50 MG TAB PO SCH (09:00)
[2024-12-14] MEDS: MEMANTINE 5 MG TABLET PO SCH (09:00)
[2024-12-16 21:00] VITALS: O2SAT 96
[2024-12-17] MEDS: MORPHINE 10 MG/0.5 ML ORAL CONCENTRATE SOLUTION U/D SL PRN (17:14)
[2024-12-17] MEDS ORDERED: FLEET ENEMA PR PRN (17:40)
[2024-12-17] MEDS: BISACODYL 10 MG SUPP PR PRN (17:53)
[2024-12-17] MEDS: OLANZapine ORAL DISINTEGRATING TAB 5MG PO SCH (18:52)
[2024-12-20] MEDS: MORPHINE 10 MG/0.5 ML ORAL CONCENTRATE SOLUTION U/D SL SCH (13:34)
[2024-12-20] MEDS: LORazepam 1 MG TAB PO SCH (13:35)
[2024-12-21 08:41] VITALS: O2SAT 96
[2024-12-22] MEDS: MORPHINE 4 MG/ML 1 ML VIAL IV PRN (01:31)
[2024-12-22] MEDS: MORPHINE 4 MG/ML 1 ML VIAL IV SCH (11:55)
[2024-12-22] MEDS ORDERED: HYOSCYAMINE SULFATE 0.125 MG SUBL TABLET SL PRN (13:15)
[2024-12-22] MEDS: GLYCOPYRROLATE INJ 0.2 MG/ML 2 ML VIAL IV SCH (13:20)
[2024-12-22] MEDS ORDERED: SCOPOLAMINE 1MG TRANSDERMAL PATCH TOP SCH (15:00)
== END 2024-12-22 19:30 | disposition expired | DRG 951 ==
LOC: M ED 11:42 → M ED INP 11:43 → M MSPAV 20:23 → OBSVTOIN 12-16 11:51
PROVIDERS: ADMIT Internal Medicine; ATTEND Student in an Organized Health Care Education/Training Program
DX: Z51.5 Encounter for palliative care (principal); K86.1 Other chronic pancreatitis; E87.20 Acidosis, unspecified; F02.83 Dementia in other diseases classified elsewhere, unspecified severity, with mood disturbance; N17.9 Acute kidney failure, unspecified; F05 Delirium due to known physiological condition; F02.818 Dementia in other diseases classified elsewhere, unspecified severity, with other behavioral disturbance; E46 Unspecified protein-calorie malnutrition; G30.9 Alzheimer's disease, unspecified; E86.0 Dehydration; D72.829 Elevated white blood cell count, unspecified; R63.4 Abnormal weight loss; R57.1 Hypovolemic shock; K72.90 Hepatic failure, unspecified without coma; K21.9 Gastro-esophageal reflux disease without esophagitis; I10 Essential (primary) hypertension; N32.81 Overactive bladder; Z66 Do not resuscitate; Z74.1 Need for assistance with personal care; Z79.891 Long term (current) use of opiate analgesic; Z79.899 Other long term (current) drug therapy